=== PATIENT | female | born 1970 | race Caucasian/White ===

== ENCOUNTER 2016-03-05 10:42 | Emergency (ER) | payer OTHER, SELFPAY ==
[2016-03-05 10:47] VITALS: TEMP 98.5; BMI 26.6
[2016-03-05 11:05] LABS: CPK TOTAL WITH POSSIBLE MB 69 IU/L (30-134)
--- NOTE | 2016-03-05 11:37 | EDPRACDOC ---
- General Information Chief Complaint: Neuro Symptoms/Deficits Stated Complaint: LEFT SIDE WEAKNESS Time Seen by Provider: 03/05/16 11:00 Mode of Arrival:: Car Home Medications: Home Medications Metformin HCl [Glucophage] 1,000 mg PO BID 05/10/12 Aspirin (OrangeEnteric Coated) [Ecotrin] 325 mg PO DAILY 03/05/13 Fluoxetine HCl [Prozac] 40 mg PO DAILY 02/07/14 Clopidogrel Bisulfate [Plavix] 75 mg PO DAILY 07/03/14 Divalproex Sodium [Depakote] 1,500 mg PO HS 07/03/14 Ramipril [Altace] 1.25 mg PO HS 08/25/14 Ziprasidone HCl [Geodon] 80 mg PO HS 08/25/14 Benztropine Mesylate 1 mg PO QHS 03/27/15 Pantoprazole Sodium [Protonix] 40 mg PO DAILY 03/27/15 Ascorbic Acid [Vitamin C] 500 mg PO DAILY 08/24/15 Clonazepam [Klonopin] 0.25 mg PO BID 08/24/15 Magnesium Oxide [Magnesium] 400 mg PO BID 08/24/15 Doxycycline Hyclate 100 mg PO .BID X 7D 03/05/16 Insulin Lispro [Humalog] 0 units SQ .PUMP 03/05/16 Levothyroxine [Synthroid, Levoxyl] 125 mcg PO DAILY 03/05/16 Allergies/Adverse Reactions: Allergies Allergy/AdvReac Type Severity Reaction Status Date / Time lithium [[place]] Allergy Severe See Verified 03/05/16 10:46 Comments amoxicillin [Amoxicillin] Allergy Intermediate Angioedema* Verified 03/05/16 10: 46 celecoxib [From Celebrex] Allergy Intermediate Edema-Local Verified 03/05/16 10: 46 ized citalopram hydrobromide Allergy Intermediate Rash-Genera Verified 03/05/16 10:46 [From Celexa] lized Penicillins Allergy Intermediate Angioedema* Verified 03/05/16 10:46 pregabalin [From Lyrica] Allergy Intermediate Angioedema* Verified 03/05/16 10: 46 rofecoxib [From Vioxx] Allergy Intermediate Edema-Local Verified 03/05/16 10:46 ized Ltztazx-Pnm-Hmw Reductase Allergy Intermediate See Verified 03/05/16 10:46 Inhibitor Comments Sulfa (Sulfonamide Allergy Intermediate Rash-Genera Verified 03/05/16 10:46 Antibiotics) lized [Sulfa(Sulfonamide Antibiotics)] colesevelam HCl Allergy Rash-Genera Verified 03/05/16 10:46 [From WelChol] lized levetiracetam [From Keppra] Allergy Confusion Verified 03/05/16 10:46 - History of Present Illness Exact Onset of Symptoms: Unknown Symptoms Started: Reports: Suddenly Symptoms: Reports: Difficulty walking, Facial droop, Slurred speech Symptoms Description: Worsening Weakness: Left: Arm, Leg, Face Associated signs and symptoms:: Reports: None - Other History Other History: PT SAID THAT SHE NOTICED SOME SLURRED SPEECH LAST NIGHT. SHE NOTICED THAT FOOD WAS FALLING OUT OF THE LEFT SIDE OF HER MOUTH LAST NIGHT ALSO. SHE WENT HOME AND WAS FINE WHEN SHE WOKE UP. TODAY, SHE WAS WALKING AROUND AT THE STORE AND SHE DEVELOPED LEFT LEG AND ARM WEAKNESS. THE PT IS UNABLE TO WALK WITHOUT DRAGGING HER LEFT LEG. ED Past Medical History - Patient Medical History Neurological History: Reports: Cerebrovascular Accident (Multiple TIAs.), Migraine (diagnosed at [facility] 12/2013. Her migraines presents as numbne) Cardiac History: Reports: Hypertension, Hypercholesterolemia Respiratory History: Reports: Asthma. Denies: Pneumonia GI/ History: Reports: Liver Failure (CIRROSIS 2NDARY TO MEDS), Gastroesophageal Reflux (On no medications.) Musculoskeletal History: Reports: Arthritis (KNEES, BACK), Osteoarthritis Psychological History: Reports: Depression, Anxiety, Bipolar Disorder. Denies: Substance Use Disorder Systemic History: Reports: Anemia (iron infusion 08/2014), Diabetes, Hypothyroidism. Denies: Cancer Surgical History: Reports: Cholecystectomy, Other (Back surgery, resection of the right fallopian tube) - Family Medical History Reports: Hypertension (Mother), Cardiac Disorders (Paternal uncle of [place] at 50yo.), Respiratory Disorders (Father: COPD.). Denies: Diabetes, Cancer, Stroke - Social Medical History Smoking Status: Never smoker Social History: Denies: Cocaine Use, Marijuana Use, Substance Use Disorder Lives In: Home EDM Review of Systems - Review of Systems ROS Negative Except as Marked: Yes All systems reviewed and were negative except as marked Neurological: Gait Difficulty - Physical Exam Constitutional: Alert (Awake), No apparent distress Oriented to: Time, Person, Place Last recorded Vital Signs: Last Vital Signs Temp 98.5 F 03/05/16 10:43 Pulse 100 03/05/16 11:32 Resp 18 03/05/16 11:32 BP 137/77 03/05/16 11:32 Pulse Ox 97 03/05/16 11:32 Oxygen Pulse Oxygen Saturation 97 O2 Device Room Air Oxygen Flow Rate Fraction of Inspired Oxygen ( FIO2) - HEENT Head: Normal ( normocephalic) Eye Exam: Normal (PERRL, EOMI, Sclera white) Oropharynx: Normal (Pharynx:Moist without exudate,Gums-no swelling) ENT EAC: Normal TMJ: Normal Nose: No Symptoms Reported (septum midline) Neck: Normal (FROM, trachea at midline) - Respiratory/Cardiovascular Respiratory: Normal - CTA (BBS clear to auscultation without adventitious sounds ) Cardiovascular: Normal (RRR without murmur, gallop or rub) - GI Auscultation: Normal (NABS) Palpation: Normal (Soft,No rebound or guarding, non distended) Tenderness: Non tender Larios's Sign: Negative - Musculoskeletal Back: Normal (Non-Tender) Extremities: Normal (Normal tone, Pulses 2+ No cyanosis or edema, FROM) - Integumentary Skin: Normal, Warm, Dry Lymphatics: Normal (no adenopathy) - Neurologic Memory Impaired: Normal Motor Function: Abnormal (LEFT SIDED WEAKNESS) Cranial Nerve: Normal (CN II-X11 intact sensation, strength 5/5) Cerebellar: Normal Mood Description: Normal Perception: Normal ED Stroke / Weakness Exam - Neurologic Memory Impaired: Normal Orientation: Time, Person, Place Motor Function Tested: Abnormal (LEFT SIDED WEAKNESS) Cranial Nerve: Normal (CN II-X11 intact sensation, strength 5/5) NIH Stroke Scale Initial Evaluation Level of Consciousness: Alert LOC- Question: Answers Both Correctly LOC Commands: Both Task Correctly Best Gaze: Normal Visual: No Visual Loss Facial Palsy: Minor Paralysis Motor Arm LEFT: Some Effort Against [place] Motor Arm RIGHT: No Drift Motor Leg LEFT: Some Effort Against [place] Motor Leg RIGHT: No Drift Limb Ataxia: Absent Sensory: Mild to Mod Sensory Loss Best Language: No Aphasia Dysarthria: Normal Extinction and Inattention: No Abnormality (Neglect) Score: 6out of42 - Results 03/05/16 10:48 03/05/16 10:48 Creatine Kinase 69 IU/L (30-134) 03/05/16 10:48 Troponin I < 0.01 ng/mL (<.04) 03/05/16 10:48 Lab Results 03/05/16 10:48 Creatine Kinase 69 Troponin I < 0.01 - EKG EKG #1 EKG Time: 11:24 -: Yes EKG interpreted by me Rate: bpm: 98 [place]: Normal Rhythm: NSR Block: None Hypertrophy: None ST: Normal - Additional Information PT D/W DR. WILLIS (NEUROLOGIST) WHO REC TPA DUE TO HER SX GOING AWAY AND RE STARTING AT 0900. PT DOES NOT HAVE ANY CONTRAINDICATIONS. - Departure Yes I personally saw and evaluated the patient. Disposition: Trans. to Other Hospital Condition: Serious Final Diagnosis: CVA - cerebrovascular accident due to cerebral artery occlusion Education/Counseling Given To: Patient Education/Counseling Given Regarding: Diagnosis, Treatment Referrals: Bettie Weaver MD [Primary Care Provider] - One Week Decision to Transfer Time: 12:00
[2016-03-05 11:47] LABS: AUTOMATED BASOPHIL 0.7 % (0-2); AUTOMATED EOSINOPHIL 3.2 % (0-5); AUTOMATED LYMPH 29.1 % (17-44); AUTOMATED MONOCYTE 8.8 % (3-10); AUTOMATED NEUTROPHIL 58.2 % (45-76); MPV 9.3 fL (7.4-10.4)
[2016-03-05 11:55] LABS: BLOOD UREA NITROGEN 17 MG/DL (7-17); CALCIUM 9.9 MG/DL (8.4-10.2); CALCULATED OSMOLALITY 271 MOs/Kg (270-290); CHLORIDE 100 mEq/L (98-107); GLUCOSE 193 MG/DL (70-99); SODIUM LEVEL 137 mEq/L (137-146); TOTAL PROTEIN 8.5 G/DL (6.3-8.2)
[2016-03-05 11:57] LABS: ALL NEG? YES; MDMA* NEG (NEGATIVE); METHAMPHETAMINES NEG (NEGATIVE); OXYCODONE NEG (NEGATIVE); RBC/URINE 0-2 (0-5); WBC/URINE 0-2 (0-5)
[2016-03-05 12:04] LABS: PARTIAL THROMB. TIME 23.4 SEC (22-35)
[2016-03-05 12:04] LABS: LEUKOCYTES/URINE NEG (NEGATIVE); NITRITE/URINE NEG (NEGATIVE); URINE OCCULT BLOOD NEG (NEG/TRACE)
[2016-03-05] MEDS ORDERED: ALTEPLASE 100 MG IV STA (12:29)
[2016-03-05] MEDS ORDERED: ALTEPLASE 100 MG VIAL IV ONE (13:00)
[2016-03-05] MEDS ORDERED: ALTEPLASE 100 MG IV ONE (13:00)
[2016-03-05 13:15] VITALS: BP 155/75; PULSE 101
--- NOTE | 2016-03-05 14:29 | DIRPT ---
CLINICAL DATA: CVA, left-sided weakness, visual disturbance. EXAM: PORTABLE CHEST 1 VIEW COMPARISON: Chest x-ray dated 12/19/2015. FINDINGS: Heart size is normal. Overall cardiomediastinal silhouette is stable in size and configuration. Lungs are clear. Lung volumes are normal. Osseous and soft tissue structures about the chest are unremarkable. IMPRESSION: Lungs are clear and there is no evidence of acute cardiopulmonary abnormality. Electronically Signed By: Rusty Beasley M.D. On: 03/05/2016 14:26
--- NOTE | 2016-03-05 15:02 | DIRPT ---
CLINICAL DATA: Left-sided weakness beginning at 9 a.m.. Code stroke. Previous stroke in 2010. EXAM: CT HEAD WITHOUT CONTRAST TECHNIQUE: Contiguous axial images were obtained from the base of the skull through the vertex without intravenous contrast. COMPARISON: Head CT dated 08/25/2015 and MRI dated 11/21/2010. FINDINGS: There is mild generalized brain atrophy with commensurate dilatation of the ventricles and sulci. Ventricles are stable in size and configuration. Small chronic-appearing lacunar infarct noted within the upper right basal ganglia region. There is no mass, hemorrhage, edema or other evidence of acute parenchymal abnormality. No extra-axial hemorrhage. Osseous structures are unremarkable. Visualized upper paranasal sinuses are clear. Mastoid air cells are clear. Superficial soft tissues are unremarkable. IMPRESSION: 1. No evidence of acute intracranial abnormality. No intracranial mass, hemorrhage or edema. 2. Small lacunar infarct within the upper right basal ganglia region, too small to definitively characterize but favored to be chronic. These results were called by telephone at the time of interpretation by Dr. Roldan on 03/05/2016 at 11:[address] Lerma, who verbally acknowledged these results. Electronically Signed By: Rusty Beasley M.D. On: 03/05/2016 14:59
== END 2016-03-05 13:12 | disposition home or self-care (01) ==
LOC: ED 10:42
DX: I63.50 Cerebral infarction due to unspecified occlusion or stenosis of unspecified cerebral artery (principal); I10 Essential (primary) hypertension; E78.00 Pure hypercholesterolemia, unspecified; E11.9 Type 2 diabetes mellitus without complications; E03.9 Hypothyroidism, unspecified; Z79.82 Long term (current) use of aspirin; Z79.4 Long term (current) use of insulin; Z79.899 Other long term (current) drug therapy; D50.9 Iron deficiency anemia, unspecified
CPT/HCPCS: 36415; 37195; 70450; 71010; 80053; 80164; 80307; 81001; 81025; 82550; 84484; 85025; 85610; 85730; 93005; 99213; 99214; 99285; J2997